=== PATIENT | female | born 1950 | race African-American/Black ===

== ENCOUNTER 2020-03-09 18:24 | Emergency (ER) | payer OTHER ==
[~2020-03-09] VITALS: Ht 165.1 cm; Wt 85.7 kg
[2020-03-09 19:55] VITALS: BP 138/88
[2020-03-09] MEDS ORDERED: ASPirin 81 mg TAB PO ONE (20:15)
[2020-03-09 22:02] LABS: Basophils # (auto) 0.1 10 ^3/uL (0-0.2); Hemoglobin 11.5 g/dL (12.2-16.2); Lymphocytes # (auto) 1.7 10 ^3/uL (0.4-5.4); Monocytes # (auto) 0.5 10 ^3/uL (0-1.3); Neutrophils # (auto) 3.7 10 ^3/uL (1.6-8.6); White Blood Cell 6.3 10^3/uL (4.4-10.8)
[2020-03-09 22:03] LABS: Basophils % (auto) 1.3 % (0.0-2.0); Eosinophils # (auto) 0.3 10 ^3/uL (0-0.8); Eosinophils % (auto) 4.2 % (0.0-7.0); Hematocrit 34.4 % (36.0-46.0); Lymphocytes % (auto) 27.2 % (10.0-50.0); Mean Corpuscular Hemoglobin 27.3 pg (28.0-32.0); Mean Corpuscular Hgb Conc. 33.4 g/dL (32.0-36.0); Mean Corpuscular Volume 81.7 fL (80.0-100.0); Monocytes % (auto) 7.9 % (0.0-12.0); Neutrophils % (auto) 59.4 % (37.0-80.0); Nucleated Red Blood Cells % 0.1 %; Platelet Count (auto) 317 10^3/uL (140-450); Red Blood Cells 4.22 10^6/uL (4.0-5.20); Red Cell Distribution Width 14.7 % (11.8-14.3)
[2020-03-09 22:21] LABS: INR 1.04 (0.9-1.15); Partial Thromboplastin Time 26.5 sec (23.0-31.2)
[2020-03-09 22:22] LABS: Alanine Aminotransferase 23 U/L (13-56); Albumin 3.9 g/dL (3.4-5.0); Anion Gap 9 (5-15); Aspartate Aminotransferase 18 U/L (15-37); BUN/Creatinine Ratio 16.9; Blood Urea Nitrogen 26 mg/dL (7-18); Calcium 9.5 mg/dL (8.5-10.1); Carbon Dioxide 25 mmol/L (21-32); Chloride 107 mmol/L (98-107); GFR African American 43 mL/min; GFR Non-African American 36 mL/min; Glucose 137 mg/dL (74-106); Magnesium 2.2 mg/dL (1.6-2.6); Sodium 141 mmol/L (136-145)
[2020-03-09 22:27] LABS: Alkaline Phosphatase 122 U/L (45-117); Bilirubin, Total 0.3 mg/dL (0.2-1.0); Total Protein 8.3 g/dL (6.4-8.2)
== END 2020-03-09 21:48 | disposition left against medical advice (07) ==
LOC: ER 18:24 → EDBD 18:24 → ER 21:48
DX: R07.89 Other chest pain (principal); E11.9 Type 2 diabetes mellitus without complications; I10 Essential (primary) hypertension; E78.5 Hyperlipidemia, unspecified; I25.10 Atherosclerotic heart disease of native coronary artery without angina pectoris
CPT/HCPCS: 36415; 71045; 80053; 83735; 83880; 84443; 84484; 85025; 85610; 85730; 93005

== ENCOUNTER 2024-08-13 15:19 | Inpatient (IN) | payer OTHER, MEDICAID ==
[~2024-08-13] VITALS: Ht 165.1 cm; Wt 85.3 kg
--- NOTE | 2024-08-13 15:34 | ED.PDOC ---
History of Present Illness HPI Comments 74-year-old female presents with a chief complaint of SOB and weakness x 2 weeks. Patient states that she mainly has SOB at rest when lying down and has been feeling increasingly weak. Patient denies any chest pain at this time. Patients EKG showed A-Fib with LBBB at rate of 126. Patient denies any other sym ptoms at this time. Chief Complaint: Shortness of Breath Time Seen by MD: 15:28 Primary Care Provider: Chuyita Lizmaa Reviewed Notes: Nurses Notes, Medications, Allergies Allergies: Coded Allergies: NO KNOWN ALLERGIES (Unverified , 03/09/20) Information Source: Patient Mode of Arrival: Ambulatory Severity: Moderate Timing: Weeks Duration: Intermittent Prehospital treatment: None Past Medical History PAST MEDICAL HISTORY: AFIB, CAD, CKF, DM, Gout, High Lipids, HTN, [place] Surgical History: Denies all surgeries Family History Family History: Family hx of DM, Family hx of heart cinda, Family hx of HTN Social History Smoker: Non-Smoker Alcohol: Rarely Drugs: Denies Drug Use Lives In: Home Constitutional: reports: weakness; denies: chills, diaphoresis, fatigue, fever, malaise, sweats, others EENTM: denies: blurred vision, double vision, ear bleeding, ear discharge, ear drainage, ear pain, ear ringing, eye pain, eye redness, hearing loss, mouth pain, mouth swelling, nasal discharge, nose bleeding, nose congestion, nose pain, photophobia, tearing, throat pain, throat swelling, voice changes, others Respiratory: reports: SOB at rest, shortness of breath; denies: cough, hemoptysis, orthopnea, SOB with excertion, stridor, wheezing, others Cardiovascular: denies: chest pain, dizzy spells, diaphoresis, Dyspnea on exe rtion, edema, irregular heart beat, left arm pain, lightheadedness, palpitations, PND, syncope, others Gastrointestinal: denies: abdomen distended, abdominal pain, blood streaked bowels, constipated, diarrhea, dysphagia, difficulty swallowing, hematemesis, melena, nausea, poor appetite, poor fluid intake, rectal bleeding, rectal pain, vomiting, others Genitourinary: denies: abnormal vagina bleeding, burning, dyspareunia, dysuria, flank pain, frequency, hematuria, incontinence, pain, , vagina discharge, urgency, others Neurological: denies: dizziness, fainting, headache, left sided numbness, left sided weakness, numbness, paresthesia, pre-existing deficit, right sided numbness, right sided weakness, seizure, speech problems, tingling, tremors, weakness, others Musculoskeletal: denies: back pain, gout, joint pain, joint swelling, muscle pain, muscle stiffness, neck pain, others Integumetry: denies: bruises, change in color, change in hair/nails, dryness, laceration, lesions, lumps, rash, wounds, others Allergic/Immunocompromised: denies: Difficulty Healing, Frequent Infections, Hives, Itching, others Hematologic/Lymphatic: denies: anemia, blood clots, easy bleeding, easy bruising, swollen glands, others Endocrine: denies: excessive hunger, excessive sweating, excessive thirst, excessive urination, flushing, intolerance to cold, intolerance to heat, unexplained weight gain, unexplained weight loss, others Psychiatric: denies: anxiety, bipolar disorder, depression, hopeless, panic disorder, schizophrenia, sleepless, suicidal, others All Other Systems: Reviewed and Negative Physical Exam General Appearance: Moderate Distress HEENT: Normal ENT Inspection, Pharynx Normal, TMs Normal Neck: Full Range of Motion, Non-Tender, Normal, Normal Inspection Respiratory: Chest Non-Tender, Lungs Clear, No Accessory Muscle Use, No Respi ratory Distress, Normal Breath Sounds Cardiovascular: Irregular, No Edema, No JVD, No Murmur, No Gallop, Tachycardia Breast Exam: Deferred Gastrointestinal: No Organomegaly, Non Tender, No Pulsatile Mass, Normal Bowel Sounds, Soft Genitalia: Deferred Pelvic: Deferred Rectal: Deferred Extremities: No calf tenderness, Normal capillary refill, No pedal edema Musculoskeletal : Apperance: Normal Neurologic: Alert, manager cardiac II-XII nml as Tested, Motor Weakness, Normal Affect, Normal Mood, No Sensory Deficits Cerebellar Function: Normal Reflexes: Normal Skin: Dry, Normal Color, Warm Lymphatic: No Adenopathy Was a procedure done? Was a procedure done?: No EKG EKG : Pulse Rate (adult): 126 [place]: Normal Cardiac Rhythm: Afib Block: LBBB Hypertrophy: None ST: Normal Differential Dx Considerations may include: Atrial fibrillation with rapid response, electrolyte imbalance dehydration, elec trolyte imbalance X-Ray, Labs, Meds, VS Vital Signs Date Time Temp Pulse Resp B/P (MAP) Pulse Ox O2 Delivery O2 Flow Rate FiO2 08/13/24 18:00 73 23 90/66 (74) 95 08/13/24 17:50 118 95/73 08/13/24 16:00 108 08/13/24 15:50 126 24 96 Room Air* 0 21 08/13/24 15:50 97.6 126 24 98/75 (83) 96 97.6 08/13/24 15:34 126 08/13/24 15:27 84.9 10 18 122/74 (90) 98 84.9 08/13/24 15:27 126 Lab Test 08/13/24 17:22 08/13/24 16:28 08/13/24 16:03 08/13/24 15:30 Range/Units Troponin I High Sensitivity 17 14 </=34 ng/L White Blood Count 5.3 4.4-10.8 10^3/uL Red Blood Count 3.96 L 4.0-5.20 10^6/uL Hemoglobin 12.0 L 12.2-16.2 g/dL Hematocrit 36.2 36.0-46.0 % Mean Corpuscular Volume 91.6 80.0-100.0 fL Mean Corpuscular Hemoglobin 30.3 28.0-32.0 pg Mean Corpuscular Hemoglobin Concent 33.1 32.0-36.0 g/dL Red Cell Distribution Width 17.2 H 11.8-14.3 % Platelet Count 225 140-450 10^3/uL Mean Platelet Volume 8.1 6.9-10.8 fL Neutrophils (%) (Auto) 61.5 37.0-80.0 % Lymphocytes (%) (Auto) 27.8 10.0-50.0 % Monocytes (%) (Auto) 7.2 0.0-12.0 % Eosinophils (%) (Auto) 2.3 0.0-7.0 % Basophils (%) (Auto) 1.2 0.0-2.0 % Neutrophils # (Auto) 3.3 1.6-8.6 10 ^3/uL Lymphocytes # (Auto) 1.5 0.4-5.4 10 ^3/uL Monocytes # (Auto) 0.4 0-1.3 10 ^3/uL Eosinophils # (Auto) 0.1 0-0.8 10 ^3/uL Basophils # (Auto) 0.1 0-0.2 10 ^3/uL Nucleated Red Blood Cells 0.1 % Sodium Level 143 136-145 mmol/L Potassium Level 4.2 3.5-5.1 mmol/L Chloride Level 110 H 98-107 mmol/L Carbon Dioxide Level 24 20-31 mmol/L Anion Gap 9 5-15 Blood Urea Nitrogen 35 H 9-23 mg/dL Creatinine 2.32 H 0.550-1.02 mg/dL Glomerular Filtration Rate Calc 22 >90 mL/min BUN/Creatinine Ratio 15.1 10.0-20.0 Serum Glucose 109 H 74-106 mg/dL Calcium Level 11.3 H 8.7-10.4 mg/dL Magnesium Level 2.3 1.6-2.6 mg/dL B-Type Natriuretic Peptide 434.10 0-100 pg/mL POC Glucose 116 H 70-106 mg/dl Urine Color Yellow Yellow Urine Clarity Turbid H Clear Urine pH 5.0 5.0-9.0 Urine Specific [place] 1.016 1.001-1.035 Urine Protein 1+ H Negative Urine Ketones Negative Negative Urine Blood Negative Negative /uL Urine Nitrite Negative Negative Urine Bilirubin Negative Negative Urine Urobilinogen Normal Negative mg/dL Urine Leukocyte Esterase 3+ Negative /uL Urine RBC 2 0 - 4 /hpf Urine Microscopic WBC 177 H 0-5 /HPF Urine Squamous Epithelial Cells Few <5 /hpf Urine Bacteria None seen None Seen /hpf Urine Hyaline Casts Many 0 - 2 /lpf Urine Mucus Few None Seen Urine Glucose Normal Normal mg/dL Test 08/13/24 15:27 Range/Units POC Glucose 115 H 70-106 mg/dl Current Medications Medications (Trade) Dose Ordered Sig/Tere Route Start Time Stop Time Status Last Admin Aspirin 162 mg ONCE ONCE PO 08/13/24 16:00 08/13/24 16:01 DC 08/13/24 15:56 Sodium Chloride 1,000 ml @ 1,000 mls/hr Q1H ONCE IV 08/13/24 18:00 08/13/24 18:59 08/13/24 17:59 Amiodarone HCl 100 ml @ 600 mls/hr ONCE ONCE IV 08/13/24 18:00 08/13/24 18:09 DC 08/13/24 17:55 The chest x-ray shows cardiomegaly but no sign of any infiltrates The patient was somewhat hypotensive as well as having an atrial fibrillation greater than 120. We started the patient on amiodarone 150 mg IV and then an amiodarone drip The patient was given aspirin 162 mg by mouth The patient was bolused with normal saline at 1000 The urine test is positive for UTI The patient is being given Rocephin 1 g IV piggyback The BNP is 434 The CBC and the rest of the chemistry panel shows a BUN of 35 and a creatinine of 2.32 The troponin level x2 is negative At this time, the patient is being admitted to the hospitalist We will continue the amiodarone drip. Images Reviewed?: Images reviewed and evaluated by me Time of 1ST Reevaluation: 15:58 Reevaluation 1ST: Unchanged Patient Education/Counseling: Diagnosis, Treatment, Prognosis Family Education/Counseling: No Family Present Departure 1 Departure Time of Disposition: 18:53 Impression: Primary Impression: Atrial fibrillation with rapid ventricular response Additional Impression: Generalized weakness Disposition: ADMITTED INPATIENT Admit to: ICU Condition: Fair Critical Care Note Critical Care Time?: Yes (55 min-critical care time only) Stability Stability form required: Yes Unstable for transfer: ICU, CCU, PCU, ROB (Intensive VS monitoring), ED Physician Assesment (Clinical assesment) Heart Score Heart Score: Heart Score Response (Comments) Value History N/A 0 EKG N/A 0 Age N/A 0 Risk Factors N/A 0 Troponin N/A 0 Total 0 I personally scribed for LAWRENCE DAVID MD ([email or web address]) on 08/13/24 at 15:34. Electronically submitted by Mikey Romo ([email or web address]). LAWRENCE DAVID MD August 13, 2024 15:34
[2024-08-13 15:50] VITALS: PULSE 126; RESP 24; O2SAT 96
[2024-08-13] MEDS: ASPirin 81 mg TAB PO ONE (15:56)
[2024-08-13 16:04] LABS: Urine Bacteria None Seen /hpf (None Seen)
--- NOTE | 2024-08-13 16:19 | DVH ---
CHEST RADIOGRAPH Indication: sob Technique: Single frontal view of the chest was obtained COMPARISON: CHEST PORTABLE on DOS: 03/09/20 FINDINGS: Lines and Tubes: None Lungs: Clear Pleura: No effusion. No pneumothorax. Cardiomediastinal contours: Cardiomegaly Bones: Unremarkable IMPRESSION: Cardiomegaly
[2024-08-13 16:20] LABS: Urine Blood Negative /uL (Negative); Urine Clarity Turbid (Clear); Urine Color Yellow (Yellow); Urine Hyaline Cast MANY /lpf (0 - 2); Urine Mucus FEW (None Seen); Urine Protein, UAD 1+ (Negative); Urine Specific Gravity 1.016 (1.001-1.035); Urine Squamous Epithelial Cell FEW /hpf (<5); Urine Urobilinogen Normal (Negative); Urine WBC 177 /HPF (0-5)
[2024-08-13 16:49] LABS: Basophils # (auto) 0.1 10 ^3/uL (0-0.2); Basophils % (auto) 1.2 % (0.0-2.0); Eosinophils # (auto) 0.1 10 ^3/uL (0-0.8); Eosinophils % (auto) 2.3 % (0.0-7.0); Hematocrit 36.2 % (36.0-46.0); Lymphocytes # (auto) 1.5 10 ^3/uL (0.4-5.4); Lymphocytes % (auto) 27.8 % (10.0-50.0); Mean Corpuscular Hemoglobin 30.3 pg (28.0-32.0); Mean Corpuscular Hgb Conc. 33.1 g/dL (32.0-36.0); Mean Corpuscular Volume 91.6 fL (80.0-100.0); Monocytes # (auto) 0.4 10 ^3/uL (0-1.3); Monocytes % (auto) 7.2 % (0.0-12.0); Neutrophils # (auto) 3.3 10 ^3/uL (1.6-8.6); Neutrophils % (auto) 61.5 % (37.0-80.0); Nucleated Red Blood Cells % 0.1 %; Platelet Count (auto) 225 10^3/uL (140-450); Red Blood Cells 3.96 10^6/uL (4.0-5.20); Red Cell Distribution Width 17.2 % (11.8-14.3); White Blood Cell 5.3 10^3/uL (4.4-10.8)
[2024-08-13 16:59] LABS: Potassium 4.2 mmol/L (3.5-5.1); Sodium 143 mmol/L (136-145)
[2024-08-13 17:00] LABS: Anion Gap 9 (5-15); Carbon Dioxide 24 mmol/L (20-31)
[2024-08-13 17:04] LABS: Calcium 11.3 mg/dL (8.7-10.4); Chloride 110 mmol/L (98-107)
[2024-08-13 17:06] LABS: BUN/Creatinine Ratio 15.1 (10.0-20.0); Blood Urea Nitrogen 35 mg/dL (9-23); Glucose 109 mg/dL (74-106); Magnesium 2.3 mg/dL (1.6-2.6)
[2024-08-13] MEDS: METOPROLOL TARTRATE 1MG/1ML-5ML VIAL IV ONE (17:50)
[2024-08-13] MEDS: AMIODARONE BOLUS KIT 100 ML IV ONE (17:55)
[2024-08-13] MEDS: SODIUM CHLORIDE 0.9% 1,000 ML IV ONE (17:59)
[2024-08-13] MEDS: AMIODARONE 360mg/200mL PREMIX 200 ML IV ONE (18:28)
[2024-08-13 19:48] VITALS: PULSE 88; RESP 14; O2SAT 95
[2024-08-13] MEDS ORDERED: HYDROcodone-ACET 5/325MG TAB PO PRN (22:00)
[2024-08-13] MEDS: ATORVASTATIN 20 MG TAB PO SCH (22:00)
[2024-08-13] MEDS ORDERED: DEXTROSE (50%) 50ML SYRG IV PRN (22:00)
[2024-08-13] MEDS: InsuLIN REG 1unit/0.01ml Soln (100units/ml) SC SCH (22:00)
[2024-08-13] MEDS ORDERED: hydrALAZINE HCL 20 MG/ML VL IV PRN (22:00)
[2024-08-13] MEDS: CARVEDILOL 3.125 MG TAB PO SCH (22:00)
[2024-08-13] MEDS ORDERED: DOCUSATE SOD 100 MG CAP PO PRN (22:00)
[2024-08-13] MEDS ORDERED: ACETAMINOPHEN 325 MG TAB PO PRN (22:00)
[2024-08-13] MEDS: FUROSEMIDE 20 MG/2 ML VIAL IV ONE (22:00)
[2024-08-13] MEDS ORDERED: NITROGLYCERIN 0.4 MG SL TAB SL PRN (22:00)
[2024-08-13] MEDS: cefTRIAXone 1GM/50ML D5W 50 ML IV ONE (22:00)
[2024-08-13] MEDS ORDERED: ONDANSETRON HCL 4 MG/2 ML VIAL IV PRN (22:00)
[2024-08-13] MEDS ORDERED: MORPHINE SULFATE INJ 2 MG/ml SYRG IV PRN (22:00)
[2024-08-13] MEDS: ACCU-CHEK COMFORT CURVE STRIP VI SCH (22:00)
[2024-08-13] MEDS: SODIUM CHLOR 0.9% PF (SALINE LOCK) 10ML VIAL/SYR IV SCH (22:00)
--- NOTE | 2024-08-13 22:07 | DVHHP2 ---
History of Present Illness Reason for Visit: Generalized weakness History of Present Illness The patient is a 74 old female with multiple past medical history including AFib, Coronary artery disease, DM, and hypertension who presented to [facility] ED with complaint of generalized weakness for the past 2 weeks. Patient reports symptoms progressively get worse with shortness of breaths, increased weakness, getting worse that prompted this visit. Patient was seen and evaluated in the ED, laboratory data shows WBC 5.3, platelets 225, sodium 143, potassium 4.2, BUN 35, creatinine 2.32, glucose 109, BNP 434.10, troponin 14, blood pressure 120/85, heart rate 126 trending down to 88, temperature 98.9 F, O2 saturation 95% on room air. Urinalysis positive for urinary tract infection. Patient was started on IV antibiotic regimen Rocephin, please see medication orders section in the computer. On my assessment, patient denied chest pain, no headache, no dizziness, no diaphoresis, no shortness of breath, no nausea, no vomiting, no fever, no chills. Patient was admitted for further evaluation and medical management. Past Medical History AFIB, CAD, CKF, DM, Gout, High Lipids, HTN, [place] Past Surgical History Denies all surgeries Family History Reviewed, noncontributory to the management of this case. Past Social History The patient lives at home, denies smoking, alcohol or illicit drugs abuse. Review of Systems Constitutional: Yes: Weakness; No: Fever, Chills, Sweats, Malaise, Other Eyes: No: Pain, Vision change, Conjunctivae inflammation, Eyelid inflammation, Other, Redness ENT: No: Ear pain, Ear discharge, Nose pain, Nose discharge, Nose congestion, Mouth pain, Mouth swelling, Throat pain, Throat swelling, Other Respiratory: Shortness of breath, Other (SOB at rest); No: Cough, Dry, SOB with excertion, Wheezing, Hemoptysis, Pleuritic Pain, Sputum, Wheezing Cardiovascular: No: Chest Pain, Palpitations, Orthopnea, Paroxysmal Noc. Dyspnea, Edema, Lt Headedness, Other Gastrointestinal: No: Nausea, Vomiting, Abdominal Pain, Diarrhea, Constipation, Melena, Hematochezia, Other Genitourinary: No Dysuria, No Frequency, No Incontinence, No Hematuria, No Retention, No Other Musculoskeletal: No: other, neck pain, shoulder pain, arm pain, back pain, hand pain, leg pain, foot pain Skin: No: Rash, Lesions, Jaundice, Bruising, Other Neurological: No: Weakness, Numbness, Incoordination, Change in speech, Confusion, Seizures, Other Allergies: Coded Allergies: NO KNOWN ALLERGIES (Unverified , 03/09/20) Exam Vital Signs Vital Signs Date Time Temp Pulse Resp B/P (MAP) Pulse Ox O2 Delivery O2 Flow Rate FiO2 08/13/24 22:00 98.9 77 25 119/74 (89) 95 98.9 08/13/24 19:48 Room Air* 0 21 General Appearance: Alert, Oriented X3, Cooperative, No acute distress HEENT: Atraumatic, PERRLA, EOMI, Mucous membr. moist/pink Respiratory: Normal air movement Cardiovascular: Regular rate, Normal S1, Normal S2, No murmurs Abdominal: Normal bowel sounds, Soft, No tenderness, No hepatospenomegaly, No masses Extremities: No clubbing, No cyanosis, No edema, Normal pulses, No tenderness/swelling Skin: No rashes, No breakdown, No significant lesion Neuro: Normal speech, Normal tone, Sensation intact, Cranial nerves 3-12 NL, Reflexes 2+, Other (Generalized weakness) Psych/Mental Status: Mental status NL, Mood NL Labs/Xrays Labs Test 08/13/24 19:15 08/13/24 16:28 08/13/24 16:03 08/13/24 15:30 Range/Units Troponin I High Sensitivity 16 </=34 ng/L White Blood Count 5.3 4.4-10.8 10^3/uL Red Blood Count 3.96 L 4.0-5.20 10^6/uL Hemoglobin 12.0 L 12.2-16.2 g/dL Hematocrit 36.2 36.0-46.0 % Mean Corpuscular Volume 91.6 80.0-100.0 fL Mean Corpuscular Hemoglobin 30.3 28.0-32.0 pg Mean Corpuscular Hemoglobin Concent 33.1 32.0-36.0 g/dL Red Cell Distribution Width 17.2 H 11.8-14.3 % Platelet Count 225 140-450 10^3/uL Mean Platelet Volume 8.1 6.9-10.8 fL Neutrophils (%) (Auto) 61.5 37.0-80.0 % Lymphocytes (%) (Auto) 27.8 10.0-50.0 % Monocytes (%) (Auto) 7.2 0.0-12.0 % Eosinophils (%) (Auto) 2.3 0.0-7.0 % Basophils (%) (Auto) 1.2 0.0-2.0 % Neutrophils # (Auto) 3.3 1.6-8.6 10 ^3/uL Lymphocytes # (Auto) 1.5 0.4-5.4 10 ^3/uL Monocytes # (Auto) 0.4 0-1.3 10 ^3/uL Eosinophils # (Auto) 0.1 0-0.8 10 ^3/uL Basophils # (Auto) 0.1 0-0.2 10 ^3/uL Nucleated Red Blood Cells 0.1 % Sodium Level 143 136-145 mmol/L Potassium Level 4.2 3.5-5.1 mmol/L Chloride Level 110 H 98-107 mmol/L Carbon Dioxide Level 24 20-31 mmol/L Anion Gap 9 5-15 Blood Urea Nitrogen 35 H 9-23 mg/dL Creatinine 2.32 H 0.550-1.02 mg/dL Glomerular Filtration Rate Calc 22 >90 mL/min BUN/Creatinine Ratio 15.1 10.0-20.0 Serum Glucose 109 H 74-106 mg/dL Calcium Level 11.3 H 8.7-10.4 mg/dL Magnesium Level 2.3 1.6-2.6 mg/dL B-Type Natriuretic Peptide 434.10 0-100 pg/mL POC Glucose 116 H 70-106 mg/dl Urine Color Yellow Yellow Urine Clarity Turbid H Clear Urine pH 5.0 5.0-9.0 Urine Specific [place] 1.016 1.001-1.035 Urine Protein 1+ H Negative Urine Ketones Negative Negative Urine Blood Negative Negative /uL Urine Nitrite Negative Negative Urine Bilirubin Negative Negative Urine Urobilinogen Normal Negative mg/dL Urine Leukocyte Esterase 3+ Negative /uL Urine RBC 2 0 - 4 /hpf Urine Microscopic WBC 177 H 0-5 /HPF Urine Squamous Epithelial Cells Few <5 /hpf Urine Bacteria None seen None Seen /hpf Urine Hyaline Casts Many 0 - 2 /lpf Urine Mucus Few None Seen Urine Glucose Normal Normal mg/dL PATIENT: LEEANNA LANDERS ACCT: [id number] UNIT: [id number] : 1950 LOC: ER ROOM / BED: / AGE / SEX: 74 / F ADM STATUS: REG ER SERVICE [id number] ORDERING PHYSICIAN: LAWRENCE DAVID MD PROCEDURE(s): CXRP - CHEST PORTABLE REASON: sob ORDER NUMBER(s): [id number], ACCESSION NUMBER(s): [id number] CHEST RADIOGRAPH Indication: sob Technique: Single frontal view of the chest was obtained COMPARISON: CHEST PORTABLE on DOS: 03/09/20 FINDINGS: Lines and Tubes: None Lungs: Clear Pleura: No effusion. No pneumothorax. Cardiomediastinal contours: Cardiomegaly Bones: Unremarkable IMPRESSION: Cardiomegaly Assessment/Plan Assessment/Plan Atrial fibrillation with rapid ventricular response Generalized weakness Urinary tract infection Acute on chronic renal failure Acute exacerbation of congestive heart failure Plan 1. Admit to telemetry units 2. Breathing treatment 3. Pain control management 4. IV antibiotic management 5. Management of fluids and electrolytes 6. Consultation for hospitalist 7. Diagnostic test chest x-ray 8. DVT prophylaxis on aspirin 9. Repeat labs CBC, CMP in a.m. 10. Home medication reviewed and reconciled 11. Continue with current medical management 12. Treatment plan discussed with patient and RN. Patient verbalized understanding. Plan discussed with: Patient, Other (RN) My Orders Orders - MARCO HANEY DNP Procedure Category Date Status Time Urine Bacterial BOLA 08/13/24 Transmitted Culture 21:57 Carvedilol Tablet PHA 08/13/24 Transmitted (Coreg Tablet) 22:00 Hydralazine Injection PHA 08/13/24 Transmitted (Apresoline Inject 22:00 Furosemide Injection PHA 08/13/24 Transmitted (Lasix Injection) 22:00 Furosemide Injection PHA 08/14/24 Transmitted (Lasix Injection) 10:00 Atorvastatin (Lipitor) PHA 08/13/24 Transmitted 22:00 Consistent DIET 08/14/24 Transmitted Carb(Ccho)Diabetes Breakfast Amlodipine Tablet PHA 08/14/24 Transmitted (Norvasc Tablet) 10:00 (Nf) Xeralto PHA 08/14/24 Transmitted 10:00 Ceftriaxone Ivpb PHA 08/14/24 Transmitted Rocephin 09:00 Ceftriaxone Ivpb PHA 08/13/24 Transmitted Rocephin 22:00 Glucose Blood PHA 08/13/24 Transmitted (Accu-Chek Comfort 22:00 Mild Sliding Scale PHA 08/13/24 Transmitted 22:00 Dextrose 50% Syringe PHA 08/13/24 Transmitted 22:00 Admit ADMIT 08/13/24 Transmitted 21:57 Allergies ANTOINETTE 08/13/24 Transmitted 21:57 Code Status CODE 08/13/24 Transmitted 21:57 Sodium Chloride Lock PHA 08/13/24 Transmitted (Saline Lock Ns) 22:00 Oxygen Per Hour RT 08/13/24 Transmitted 21:57 Hydrocodone-Acet PHA 08/13/24 Transmitted 5/325mg Tab ([place] 22:00 Ondansetron Hcl PHA 08/13/24 Transmitted (Zofran) 22:00 Docusate Sodium PHA 08/13/24 Transmitted Capsule (Colace 22:00 Complete Blood Count LAB 08/14/24 Verified 04:00 Comprehensive LAB 08/14/24 Verified Metabolic Panel 04:00 Echo 2d Mode Cardiac US 08/13/24 Transmitted DOP 21:57 Condition: Serious ANTOINETTE 08/13/24 Transmitted 21:57 Acetaminophen Tablet PHA 08/13/24 Transmitted (Tylenol Tablet) 22:00 Bedrest With Bathroom ANTOINETTE 08/13/24 Transmitted Privileg 21:57 Sequential [facility] 08/13/24 Transmitted Compression Device Nitroglycerin [facility] 08/13/24 Transmitted Sublingual (Ntrostat 22:00 Morphine Sulfate PHA 08/13/24 Transmitted Injection 22:00 Stat Ekg For Chest [facility] 08/13/24 Transmitted Pain 21:57 Notify Of Changes [facility] 08/13/24 Transmitted From Base 21:57 Search Director For [facility] 08/13/24 Transmitted 24 Hours 21:57 Emergency Dysrhythmia [facility] 08/13/24 Transmitted Protocol 21:57 Rhythm Strips Once [facility] 08/13/24 Transmitted Every Shift 21:57 Oxygen By Nasal RT 08/13/24 Transmitted Cannula 21:57 Problem List: (1) Atrial fibrillation with rapid ventricular response (2) Acute on chronic renal failure (3) Generalized weakness (4) Urinary tract infection (5) Acute exacerbation of congestive heart failure Date of Service: August 13, 2024 Billing Provider: MARCO HANEY DNP Common Visit Codes: 72903-[id number] INP/OBS CARE (HIGH) MARCO HANEY DNP August 13, 2024 22:07
[2024-08-14] VITALS (8 sets, daily range): BP systolic 101–140; BP diastolic 60–89; PULSE 91–136; RESP 17–20; TEMP 95.5–97.8; O2SAT 92–97
[2024-08-14] MEDS ORDERED: ESCI1TAB36 PO (02:37)
[2024-08-14] MEDS ORDERED: AMLO1TAB23 PO (02:37)
[2024-08-14] MEDS ORDERED: GLIP-110 PO (02:37)
[2024-08-14] MEDS ORDERED: MET25T PO (02:37)
[2024-08-14] MEDS ORDERED: RIV15T PO (02:37)
[2024-08-14] MEDS ORDERED: LISI40TA16 PO (02:37)
[2024-08-14] MEDS ORDERED: ATOR40TA52 PO (02:37)
[2024-08-14] MEDS ORDERED: DULA4.5I SC (02:37)
[2024-08-14] MEDS ORDERED: ALLO300T2 PO (02:37)
[2024-08-14] MEDS ORDERED: HYDR12.55 PO (02:37)
[2024-08-14] MEDS ORDERED: ASPI81CH59 PO (02:38)
[2024-08-14 08:19] LABS: Basophils # (auto) 0 10 ^3/uL (0-0.2); Basophils % (auto) 1.1 % (0.0-2.0); Eosinophils # (auto) 0.1 10 ^3/uL (0-0.8); Eosinophils % (auto) 2.9 % (0.0-7.0); Hematocrit 33.1 % (36.0-46.0); Lymphocytes # (auto) 1.4 10 ^3/uL (0.4-5.4); Lymphocytes % (auto) 30.3 % (10.0-50.0); Mean Corpuscular Hemoglobin 30.4 pg (28.0-32.0); Mean Corpuscular Hgb Conc. 33.3 g/dL (32.0-36.0); Mean Corpuscular Volume 91.2 fL (80.0-100.0); Monocytes # (auto) 0.4 10 ^3/uL (0-1.3); Monocytes % (auto) 7.7 % (0.0-12.0); Neutrophils # (auto) 2.7 10 ^3/uL (1.6-8.6); Nucleated Red Blood Cells % 0.1 %; Platelet Count (auto) 186 10^3/uL (140-450); Red Blood Cells 3.63 10^6/uL (4.0-5.20); Red Cell Distribution Width 16.7 % (11.8-14.3); White Blood Cell 4.7 10^3/uL (4.4-10.8)
[2024-08-14 08:44] LABS: Alanine Aminotransferase 16 U/L (7-40); Albumin 4.3 g/dL (3.2-4.8); Alkaline Phosphatase 56 U/L (46-116); Anion Gap 10 (5-15); Aspartate Aminotransferase 17 U/L (13-40); BUN/Creatinine Ratio 17.4 (10.0-20.0); Bilirubin, Total 0.6 mg/dL (0.2-1.0); Carbon Dioxide 22 mmol/L (20-31); Glucose 80 mg/dL (74-106); Potassium 3.6 mmol/L (3.5-5.1); Sodium 144 mmol/L (136-145); Total Protein 6.8 g/dL (5.7-8.2)
[2024-08-14 08:46] LABS: Blood Urea Nitrogen 34 mg/dL (9-23); Calcium 10.5 mg/dL (8.7-10.4); Chloride 112 mmol/L (98-107)
[2024-08-14] MEDS: cefTRIAXone 1GM/50ML D5W 50 ML IV SCH (08:49)
[2024-08-14] MEDS: FUROSEMIDE 20 MG/2 ML VIAL IV SCH (09:03)
[2024-08-14] MEDS: ASPirin 81 mg TAB PO SCH (09:05)
[2024-08-14] MEDS: amLODIPine BESYLATE 5 MG TAB PO SCH (09:06)
[2024-08-14] MEDS: RIVAROXABAN 15 MG TAB PO SCH ×2 (09:06→17:30)
--- NOTE | 2024-08-14 14:14 | DVHPN2 ---
Reviewed: Care Plan, H&P, Medications, Previous Orders, Radiology Changes from previous H/P or p: No Changes General: Per HPI Eyes: No Pain, No Vision change, No Conjunctivae inflammation, No Eyelid inflammation, No Other, No Redness ENT: No Ear pain, No Ear discharge, No Nose pain, No Nose discharge, No Nose congestion, No Mouth pain, No Mouth swelling, No Throat pain, No Throat swelling, No Other Cardiovascular: No Chest Pain, No Palpitations, No Orthopnea, No Paroxysmal Noc. Dyspnea, No Edema, No Lt Headedness, No Other Respiratory: No Cough, No Dry; Shortness of breath; No SOB with excertion, No Wheezing, No Hemoptysis, No Pleuritic Pain, No Sputum; Other (SOB at rest) Gastrointestinal: No Nausea, No Vomiting, No Abdominal Pain, No Diarrhea, No Constipation, No Melena, No Hematochezia, No Other Genitourinary: No Dysuria, No Frequency, No Incontinence, No Hematuria, No Retention, No Other Musculoskeletal: No other, No neck pain, No shoulder pain, No arm pain, No back pain, No hand pain, No leg pain, No foot pain Skin: No Rash, No Lesions, No Jaundice, No Bruising, No Other Objective Vitals Vital Signs Date Time Temp Pulse Resp B/P (MAP) Pulse Ox O2 Delivery O2 Flow Rate FiO2 08/14/24 13:00 97.8 117 17 106/85 (92) 97 97.8 08/14/24 08:00 Room Air* 0 21 Intake/Output Intake and Output 08/14/24 07:00 Intake Total 949.98 ml Balance 949.98 ml Intake Oral 100 ml IV Total 849.98 ml # Voids 2 General Appearance: Alert, Oriented X3, Cooperative Cardiovascular: Regular rate, Normal S1, Normal S2 Medications Current Medications Medications Dose Ordered Sig/Tere Route Start Time Stop Time Status Last Admin Dose Admin Carvedilol 3.125 mg Q12HR PO 08/13/24 22:00 08/14/24 09:06 3.125 MG Hydralazine HCl 10 mg Q6HP PRN IV 08/13/24 22:00 Furosemide 20 mg DAILY IV 08/14/24 10:00 08/14/24 09:03 20 MG Atorvastatin Calcium 20 mg HS PO 08/13/24 22:00 08/13/24 22:00 20 MG Amlodipine Besylate 5 mg DAILY PO 08/14/24 10:00 08/14/24 09:06 5 MG Rivaroxaban 15 mg DAILY PO 08/14/24 10:00 08/14/24 09:06 15 MG Ceftriaxone Sodium 50 ml @ 100 mls/hr DAILY@09 IV 08/14/24 09:00 08/14/24 08:49 100 MLS/HR Diagnostic Test (Pha) 1 strip ACHS 08/13/24 22:00 08/14/24 11:45 1 STRIP Insulin Human Regular ACHS SC 08/13/24 22:00 Dextrose 50 ml UD PRN IV 08/13/24 22:00 Sodium Chloride 10 ml Q8HR IV 08/13/24 22:00 08/14/24 06:20 10 ML Acetaminophen/ Hydrocodone Bitart 1 tab Q4HP PRN PO 08/13/24 22:00 Ondansetron HCl 4 mg Q4HP PRN IV 08/13/24 22:00 Docusate Sodium 100 mg BIDPRN PRN PO 08/13/24 22:00 Acetaminophen 650 mg Q6HP PRN PO 08/13/24 22:00 Nitroglycerin 0.4 mg Q5MINP PRN SL 08/13/24 22:00 Morphine Sulfate 2 mg Q30M PRN IV 08/13/24 22:00 Aspirin 81 mg DAILY PO 08/14/24 10:00 08/14/24 09:05 81 MG Laboratory Results Laboratory Tests 08/14/24 07:37 Chemistry Test 08/13/24 16:28 08/14/24 07:37 Calcium Level 11.3 mg/dL (8.7-10.4) H 10.5 mg/dL (8.7-10.4) H Magnesium Level 2.3 mg/dL (1.6-2.6) Albumin 4.3 g/dL (3.2-4.8) Total Protein 6.8 g/dL (5.7-8.2) Cardiac Markers Test 08/13/24 16:28 B-Type Natriuretic Peptide 434.10 pg/mL (0-100) LFT Test 08/14/24 07:37 Alanine Aminotransferase (ALT) 16 U/L (7-40) Alkaline Phosphatase 56 U/L (46-116) Aspartate Amino Transferase (AST) 17 U/L (13-40) Total Bilirubin 0.6 mg/dL (0.2-1.0) Urinalysis Test 08/13/24 15:30 Urine Color Yellow (Yellow) Urine Clarity Turbid (Clear) H Urine pH 5.0 (5.0-9.0) Urine Specific [place] 1.016 (1.001-1.035) Urine Protein 1+ (Negative) H Urine Ketones Negative (Negative) Urine Blood Negative /uL (Negative) Urine Nitrite Negative (Negative) Urine Bilirubin Negative (Negative) Urine Urobilinogen Normal mg/dL (Negative) Urine Leukocyte Esterase 3+ /uL (Negative) Urine RBC 2 /hpf (0 - 4) Urine Microscopic WBC 177 /HPF (0-5) H Urine Squamous Epithelial Cells Few /hpf (<5) Urine Bacteria None seen /hpf (None Seen) Urine Hyaline Casts Many /lpf (0 - 2) Urine Mucus Few (None Seen) Urine Glucose Normal mg/dL (Normal) Microbiology Microbiology Date/Time Source Procedure Growth Status 08/13/24 15:30 Voided Urine Urine Culture - Preliminary Resulted Labs and/or images reviewed: Labs reviewed by me, Image(s) reviewed by me Assessment/Plan Assessment/Plan The patient is a 74 old female with multiple past medical history including AFib, Coronary artery disease, DM, and hypertension who presented to [facility] ED with complaint of generalized weakness for the past 2 weeks. Patient reports symptoms progressively get worse with shortness of breaths, increased weakness, getting worse that prompted this visit. Patient was seen and evaluated in the ED, laboratory data shows WBC 5.3, platelets 225, sodium 143, potassium 4.2, BUN 35, creatinine 2.32, glucose 109, BNP 434.10, troponin 14, blood pressure 120/85, heart rate 126 trending down to 88, temperature 98.9 F, O2 saturation 95% on room air. Urinalysis positive for urinary tract infection. Patient was started on IV antibiotic regimen Rocephin, please see medication orders section in the computer. On my assessment, patient denied chest pain, no headache, no dizziness, no diaphoresis, no shortness of breath, no nausea, no vomiting, no fever, no chills. Patient was admitted for further evaluation and medical management. (1) Atrial fibrillation with rapid ventricular response (2) Acute on chronic renal failure (3) Generalized weakness (4) Urinary tract infection (5) Acute exacerbation of congestive heart failure dyspnea obesity consult to cardio restarted on home meds echo as needed PT/OT Plan discussed with: Patient Date of Service: August 14, 2024 Billing Provider: BREE HUDDLESTON DO Common Visit Codes: [id number] INP/OBS CARE(HIGH) BREE HUDDLESTON DO August 14, 2024 14:13
[2024-08-14] MEDS ORDERED: MORPHINE SULFATE 4 MG/ML SYR/VIAL IV PRN (15:15)
--- NOTE | 2024-08-14 18:15 | DVHSR ---
APPROVED REPORT EXAM: Two-dimensional and M-mode echocardiogram with Doppler and color Doppler. Blood Pressure: 101/60 mmHg INDICATION CHF EXACERBATION RISK FACTORS Obesity: Height: 5'5, Weight: 194 DIMENSIONS LVDd4.9 (3.8-5.7cm)LA (2D)4.5 (1.9-4.0cm)Aortic Root3.2 (2.0-3.7cm) LVDs3.6 (2.5-4.0cm)LA (MM) (1.9-4.0cm)Aortic Cusp Exc1.5 (1.5-2.0cm) EF (%) 45.0 (55-70%)Rt. Atrium3.1 (1.9-4.0cm)Asc. Aorta4.0 cm IVSd1.1 (0.7-1.1cm)RV (D)3.4 (1.8-2.4cm) PWd0.9 (0.7-1.1cm) Mitral Valve MitralMitral Stenosis E wave0.65m/sMV Mean GR.1mmHg A wave0.01m/sMV Peak GR.78mmHg E/A ratio65.02D MVAcm2 DECEL [id number] 1/2 Timems Aortic Valve Aortic ValveAortic Stenosis V11.10m/Malia Mean GR.3mmHg V21.21m/Malia Peak GR.6mmHg LVOT Diameter2.4 (1.8-2.4cm)Doppler AVA4.11cm2 AI P 1/2 Vwaz889.21ms Pulmonic Valve V21.12m/s Conclusion lvef 25% by visual estiamate sever chf normal rv function left atrium enlarged miild mitral regurg limited study
--- NOTE | 2024-08-14 20:30 | ECG ---
[facility] Test Date: 2024-08-13 Test Time: 15:27:40 Pat Name: LEEANNA LANDERS Department: ER Room: 0248T B Gender: F Pediatric Sports Medicine Specialist: MAGI : [id number] Requested By: LAWRENCE DAVID Order Number: [id number] Reading MD: Harvey Shields Measurements Intervals [place] Rate: 126 P: 0 OH: 0 QRS: -75 QRSD: 155 T: 100 QT: 399 QTc: 578 Interpretive Statements Atrial fibrillation Left bundle branch block Baseline wander in lead(s) II,V1,V2 Electronically Signed On 08-16-2024 22:12:36 PDT by Harvey Shields Please click the below link to view image of tracing.
[2024-08-14] MEDS: AMIODARONE HCL 200 MG TAB PO SCH (21:03)
[2024-08-14] MEDS: METOPROLOL TARTRATE 25 MG TAB PO SCH (21:05)
[2024-08-15] VITALS (10 sets, daily range): BP systolic 109–118; BP diastolic 77–91; PULSE 67–135; RESP 17–18; TEMP 96.6–98.3; O2SAT 96–97
[2024-08-15] MEDS: AMIODARONE HCL 200 MG TAB PO SCH (09:21)
--- NOTE | 2024-08-15 12:39 | DVHINCON2 ---
NEIDA ORDONEZ [facility] 08/15/24 1239: Date Seen: August 15, 2024 Referring Physician MD Hermila Reason for Consultation Uncontrolled atrial fibrillation History of Present Illness This is a 74-year-old female patient who presents to the emergency room with chief complaint of generalized weakness and orthopnea for two weeks prior to emergency room arrival. Cardiology has now been consulted at this time for uncontrolled atrial fibrillation. Initial twelve lead electrocardiogram reveals atrial fibrillation with left bundle branch block. The patient denies any chest pain or palpitations at time of assessment. Serial troponin levels have been negative. Initial BNP level of 434.10pg/mL. Significant past medical history includes congestive heart failure, atrial fibrillation (on Xarelto), hyp ertension, dyslipidemia, myocardial infarction, type 2 diabetes mellitus, chronic kidney disease, and remote history of cocaine use over 15 years ago. The patient reports that her primary heat curer is . She reports undergoing a coronary angiogram with left heart catheterization a few years ago in which no catheter based intervention was deemed necessary. She reports an upcoming appointment with on August 31, 2024. Past Medical History Past medical history reviewed. No other significant than mentioned above. Past Surgical History Denies any previous surgeries Family History: Cervical cancer G8 MOTHER Family History Family history reviewed. Social History Patient admits to a remote history of cocaine use, last time approximately 15 years ago Denies any alcohol use Denies any tobacco use Allergies: Coded Allergies: NO KNOWN ALLERGIES (Unverified , 03/09/20) Home Meds Reported Medications Aspirin (Aspirin Low Dose) 81 Mg Chw, 81 MG PO DAILY, TAB.CHEW 08/14/24 Amlodipine Besylate (Amlodipine Besylate) 10 Mg Tab, 1 TAB PO DAILY 08/14/24 Escitalopram Oxalate (ESCITALOPRAM OXALATE) 10 Mg Tab, 1 TAB PO DAILY 08/14/24 Dulaglutide (Trulicity) 4.5 Mg/0.5 Ml Inj, 0.5 ML SC QWEEKLY 08/14/24 Hydrochlorothiazide (Hydrochlorothiazide) 12.5 Mg Tab, 1 TAB PO DAILY 08/14/24 Allopurinol (Allopurinol) 300 Mg Tab, 1 TAB PO DAILY 08/14/24 Lisinopril (Lisinopril) 40 Mg Tab, 1 TAB PO DAILY 08/14/24 Glipizide (Glipizide Er) 5 Mg Tab, 1 TAB PO DAILY 08/14/24 Rivaroxaban (Xarelto Tablet) 15 Mg Tb, 1 TAB PO DAILY 08/14/24 Metoprolol Tartrate (Lopressor) 25 Mg Tb, 1 TAB PO BID 08/14/24 Atorvastatin Calcium (ATORVASTATIN CALCIUM) 40 Mg Tab, 1 TAB PO HS 08/14/24 Current Medications Current Medications Medications (Trade) Dose Ordered Sig/Tere Route PRN Reason Start Time Stop Time Status Last Admin Metoprolol Tartrate (Lopressor Tablet) 25 mg BID PO 08/14/24 22:00 08/15/24 09:22 Morphine Sulfate 2 mg Q30M PRN IV FOR CHEST PAIN 08/14/24 15:15 Rivaroxaban (Xarelto Tablet) 15 mg DAILY@DINNER PO 08/14/24 17:30 Amiodarone HCl (Cordarone Tablet) 200 mg Q12HR PO 08/14/24 22:00 08/14/24 23:16 DC 08/14/24 21:03 Amiodarone HCl (Cordarone Tablet) 200 mg DAILY PO 08/15/24 10:00 08/15/24 09:21 Empaglifozin (Jardiance) 10 mg DAILY PO 08/16/24 10:00 Review of Systems Constitutional: Generalized weakness Ears, Nose, & Throat: No symptom reported Eyes: No symptom reported Neurological: No symptoms reported Pulmonary/Respiratory: No symptoms reported Cardiovascular: No symptom reported Gastrointestinal: No symptom reported Genitourinary: No symptom reported Musculoskeletal: No symptom reported Skin: No symptom reported Psychiatric: No symptom reported Endocrine: No symptom reported Hematologic/Lymphatic: No symptom reported Vital Signs Vital Signs Date Time Temp Pulse Resp B/P (MAP) Pulse Ox O2 Delivery O2 Flow Rate FiO2 08/15/24 12:32 97.5 88 17 118/83 (95) 97 97.5 08/15/24 08:10 Room Air* 0 21 Physical Exam General Appearance: Cooperative. Well-developed. Well-nourished. No acute distress. Pulmonary/Respiratory: Clear, bilateral breaths sounds. Cardiovascular/Chest: Irregular rate and rhythm. Peripheral Pulses: 2+ Radial (R). 2+ Radial (L). 2+ Pedal (R). 2+ Pedal (L) Abdominal Exam: Normal bowel sounds. Ankle Exam: Negative ankle edema Lower extremities: Negative lower extremity edema Neuro/Mental Status: A/OX4, coherent. Thoughts/Psych: Normal thought pattern. Appropriate mood and affect. Good judgment and insight. Appearance: No acute distress. Skin Exam: Normal inspection. Normal color. Warm and dry. Labs/Diagnostic Data Labs Test 08/15/24 11:21 08/14/24 07:37 08/13/24 19:15 08/13/24 16:28 Range/Units POC Glucose 152 H 70-106 mg/dl White Blood Count 4.7 4.4-10.8 10^3/uL Red Blood Count 3.63 L 4.0-5.20 10^6/uL Hemoglobin 11.0 L 12.2-16.2 g/dL Hematocrit 33.1 L 36.0-46.0 % Mean Corpuscular Volume 91.2 80.0-100.0 fL Mean Corpuscular Hemoglobin 30.4 28.0-32.0 pg Mean Corpuscular Hemoglobin Concent 33.3 32.0-36.0 g/dL Red Cell Distribution Width 16.7 H 11.8-14.3 % Platelet Count 186 140-450 10^3/uL Mean Platelet Volume 8.1 6.9-10.8 fL Neutrophils (%) (Auto) 58.0 37.0-80.0 % Lymphocytes (%) (Auto) 30.3 10.0-50.0 % Monocytes (%) (Auto) 7.7 0.0-12.0 % Eosinophils (%) (Auto) 2.9 0.0-7.0 % Basophils (%) (Auto) 1.1 0.0-2.0 % Neutrophils # (Auto) 2.7 1.6-8.6 10 ^3/uL Lymphocytes # (Auto) 1.4 0.4-5.4 10 ^3/uL Monocytes # (Auto) 0.4 0-1.3 10 ^3/uL Eosinophils # (Auto) 0.1 0-0.8 10 ^3/uL Basophils # (Auto) 0 0-0.2 10 ^3/uL Nucleated Red Blood Cells 0.1 % Sodium Level 144 136-145 mmol/L Potassium Level 3.6 3.5-5.1 mmol/L Chloride Level 112 H 98-107 mmol/L Carbon Dioxide Level 22 20-31 mmol/L Anion Gap 10 5-15 Blood Urea Nitrogen 34 H 9-23 mg/dL Creatinine 1.95 H 0.550-1.02 mg/dL Glomerular Filtration Rate Calc 27 >90 mL/min BUN/Creatinine Ratio 17.4 10.0-20.0 Serum Glucose 80 74-106 mg/dL Calcium Level 10.5 H 8.7-10.4 mg/dL Total Bilirubin 0.6 0.2-1.0 mg/dL Aspartate Amino Transferase (AST) 17 13-40 U/L Alanine Aminotransferase (ALT) 16 7-40 U/L Alkaline Phosphatase 56 46-116 U/L Total Protein 6.8 5.7-8.2 g/dL Albumin 4.3 3.2-4.8 g/dL Troponin I High Sensitivity 16 </=34 ng/L Magnesium Level 2.3 1.6-2.6 mg/dL B-Type Natriuretic Peptide 434.10 0-100 pg/mL Test 08/13/24 15:30 Range/Units Urine Color Yellow Yellow Urine Clarity Turbid H Clear Urine pH 5.0 5.0-9.0 Urine Specific [place] 1.016 1.001-1.035 Urine Protein 1+ H Negative Urine Ketones Negative Negative Urine Blood Negative Negative /uL Urine Nitrite Negative Negative Urine Bilirubin Negative Negative Urine Urobilinogen Normal Negative mg/dL Urine Leukocyte Esterase 3+ Negative /uL Urine RBC 2 0 - 4 /hpf Urine Microscopic WBC 177 H 0-5 /HPF Urine Squamous Epithelial Cells Few <5 /hpf Urine Bacteria None seen None Seen /hpf Urine Hyaline Casts Many 0 - 2 /lpf Urine Mucus Few None Seen Urine Glucose Normal Normal mg/dL Microbiology Date/Time Source Procedure Growth Status 08/13/24 15:30 Voided Urine Urine Culture - Preliminary Resulted Assessment Atrial fibrillation, likely persistent (on Xarelto) Acute on chronic HFrEF, NYHA class III History myocardial infarction Hypertension Hyperlipidemia Type 2 diabetes mellitus Chronic kidney disease Urinary tract infection History of cocaine abuse Plan/Recommendation We will continue with the following plan/recommendations (Dr. You): * Transthoracic echocardiogram reveals EF 25% * Initiate guideline directed medical therapy for CHF * Unable to start LINWOOD/ARB/ARNI or MRA given elevated creatinine * Hold SGLT2i given active urinary tract infection and low GFR * Strict intake and output, daily weights, maintain fluid restriction * [id number] VASc score: 5 points, HAS BLED: 1 point * Continue Xarelto therapy * Up titrate beta-flakita as tolerated * Monitor and replete electrolytes as needed, keep potassium greater than 4 and magnesium greater than 2 * Lipid-lowering agent * Close Cardiac surveillance Case discussed with . Thank you for allowing us to care for this patient. Please call with any questions or concerns. Critical care time spent: 41 minutes This medical document was created using an electronic medical record system with voice recognition software and computerized dictation system. Although this document has been carefully reviewed, there might still be some phonetic and typographical errors. Occasional wrong-word or ``sound-alike substitutions may have occurred due to the inherent limitations of voice recognition software. These areas are purely typographical due to imperfections of the software programs and do not reflect any compromise in the patient's medical care. Please read the chart carefully and recognize, using context, where these substitutions have occurred. Plan discussed with: Patient NYHA Physical activity limitations: Class3(Marked) ordinary (activity causes symtoms) Date of Service: August 15, 2024 Billing Provider: NEIDA ORDONEZ Cardiology Common Codes: [id number] INP/OBS CARE (High) Cardiology Consultation Codes: [id number] CONSULT <45MIN ASHER YOU MD 08/17/24 0833: Family History: Cervical cancer G8 MOTHER Allergies: Coded Allergies: NO KNOWN ALLERGIES (Unverified , 03/09/20) Home Meds Reported Medications Aspirin (Aspirin Low Dose) 81 Mg Chw, 81 MG PO DAILY, TAB.CHEW 08/14/24 Amlodipine Besylate (Amlodipine Besylate) 10 Mg Tab, 1 TAB PO DAILY 08/14/24 Escitalopram Oxalate (ESCITALOPRAM OXALATE) 10 Mg Tab, 1 TAB PO DAILY 08/14/24 Dulaglutide (Trulicity) 4.5 Mg/0.5 Ml Inj, 0.5 ML SC QWEEKLY 08/14/24 Hydrochlorothiazide (Hydrochlorothiazide) 12.5 Mg Tab, 1 TAB PO DAILY 08/14/24 Allopurinol (Allopurinol) 300 Mg Tab, 1 TAB PO DAILY 08/14/24 Lisinopril (Lisinopril) 40 Mg Tab, 1 TAB PO DAILY 08/14/24 Glipizide (Glipizide Er) 5 Mg Tab, 1 TAB PO DAILY 08/14/24 Rivaroxaban (Xarelto Tablet) 15 Mg Tb, 1 TAB PO DAILY 08/14/24 Metoprolol Tartrate (Lopressor) 25 Mg Tb, 1 TAB PO BID 08/14/24 Atorvastatin Calcium (ATORVASTATIN CALCIUM) 40 Mg Tab, 1 TAB PO HS 08/14/24 Plan/Recommendation SEVERE CHF LOW EF AFIB CHRONIC GDMT AND DIURESIS NEIDA ORDONEZ August 15, 2024 12:39 ASHER YOU MD Aug 17, 2024 08:33
[2024-08-15 15:55] LABS: Magnesium 2.1 mg/dL (1.6-2.6)
[2024-08-16] VITALS (9 sets, daily range): BP systolic 108–129; BP diastolic 67–87; PULSE 70–113; RESP 14–18; TEMP 97.9–98.3; O2SAT 94–100
[2024-08-16] MEDS: METOPROLOL SUCCINATE XL 50 MG TAB PO SCH (08:55)
[2024-08-16] MEDS ORDERED: EMPAGLIFLOZIN 10 MG TAB PO SCH (10:00)
[2024-08-16 10:08] LABS: Basophils # (auto) 0.1 10 ^3/uL (0-0.2); Basophils % (auto) 1.3 % (0.0-2.0); Eosinophils # (auto) 0.1 10 ^3/uL (0-0.8); Eosinophils % (auto) 2.8 % (0.0-7.0); Hematocrit 34.6 % (36.0-46.0); Hemoglobin 11.7 g/dL (12.2-16.2); Lymphocytes % (auto) 22.1 % (10.0-50.0); Mean Corpuscular Hemoglobin 30.7 pg (28.0-32.0); Mean Corpuscular Hgb Conc. 33.9 g/dL (32.0-36.0); Mean Corpuscular Volume 90.6 fL (80.0-100.0); Monocytes # (auto) 0.3 10 ^3/uL (0-1.3); Monocytes % (auto) 7.1 % (0.0-12.0); Neutrophils % (auto) 66.7 % (37.0-80.0); Nucleated Red Blood Cells % 0.1 %; Platelet Count (auto) 194 10^3/uL (140-450); Red Blood Cells 3.81 10^6/uL (4.0-5.20); Red Cell Distribution Width 16.4 % (11.8-14.3); White Blood Cell 4.4 10^3/uL (4.4-10.8)
[2024-08-16 10:13] LABS: Chloride 107 mmol/L (98-107); Potassium 3.8 mmol/L (3.5-5.1); Sodium 139 mmol/L (136-145)
[2024-08-16 10:14] LABS: Anion Gap 9 (5-15); Carbon Dioxide 23 mmol/L (20-31)
[2024-08-16 10:19] LABS: Calcium 10.8 mg/dL (8.7-10.4)
[2024-08-16 10:20] LABS: BUN/Creatinine Ratio 18.1 (10.0-20.0); Blood Urea Nitrogen 31 mg/dL (9-23); Glucose 199 mg/dL (74-106)
--- NOTE | 2024-08-16 10:40 | DVHPN2 ---
Consult Progress Note Subjective Other Systems: Patient in atrial fibrillation with uncontrolled rate on machine bunch maker. Denies any symptoms such as palpitations, chest pain, or shortness of breath. Objective vital signs Vital Sign Date Time Temp Pulse Resp B/P (MAP) Pulse Ox O2 Delivery O2 Flow Rate FiO2 08/16/24 09:00 98.1 83 14 126/87 (100) 96 98.1 08/16/24 08:05 Room Air* 0 21 Total Intake and Output 08/15/24 08/15/24 08/16/24 15:00 23:00 07:00 Intake Total 50 ml 800 ml 600 ml Output Total 500 ml Balance 50 ml 800 ml 100 ml medications Current Medications Medications Dose Ordered Sig/Tere Route Start Time Stop Time Status Last Admin Dose Admin Hydralazine HCl 10 mg Q6HP PRN IV 08/13/24 22:00 Furosemide 20 mg DAILY IV 08/14/24 10:00 08/16/24 08:56 20 MG Atorvastatin Calcium 20 mg HS PO 08/13/24 22:00 08/15/24 21:07 20 MG Ceftriaxone Sodium 50 ml @ 100 mls/hr DAILY@09 IV 08/14/24 09:00 08/16/24 08:53 100 MLS/HR Diagnostic Test (Pha) 1 strip ACHS 08/13/24 22:00 08/16/24 06:05 1 STRIP Insulin Human Regular ACHS SC 08/13/24 22:00 08/15/24 21:08 2 UNITS Dextrose 50 ml UD PRN IV 08/13/24 22:00 Sodium Chloride 10 ml Q8HR IV 08/13/24 22:00 08/16/24 05:59 10 ML Acetaminophen/ Hydrocodone Bitart 1 tab Q4HP PRN PO 08/13/24 22:00 Ondansetron HCl 4 mg Q4HP PRN IV 08/13/24 22:00 Docusate Sodium 100 mg BIDPRN PRN PO 08/13/24 22:00 Acetaminophen 650 mg Q6HP PRN PO 08/13/24 22:00 Nitroglycerin 0.4 mg Q5MINP PRN SL 08/13/24 22:00 Morphine Sulfate 2 mg Q30M PRN IV 08/13/24 22:00 Cancel Aspirin 81 mg DAILY PO 08/14/24 10:00 08/16/24 08:55 81 MG Morphine Sulfate 2 mg Q30M PRN IV 08/14/24 15:15 Rivaroxaban 15 mg DAILY@DINNER PO 08/14/24 17:30 08/15/24 17:08 15 MG Metoprolol Succinate 50 mg DAILY PO 08/16/24 10:00 08/16/24 08:55 50 MG Examination: GENERAL:Normal, LUNGS:Normal, CVS:Abnormal (Atrial fibrillation with uncontrolled rate), NEURO:Normal laboratory and microbiology Laboratory Tests 08/16/24 09:47 Test 08/16/24 09:47 Range/Units Serum Glucose 199 H 74-106 mg/dL Problem List/Assessment/Plan Problem List/Assessment/Plan Atrial fibrillation, likely persistent (on Xarelto) Acute on chronic HFrEF, NYHA class III History myocardial infarction Hypertension Hyperlipidemia Type 2 diabetes mellitus Chronic kidney disease Urinary tract infection History of cocaine abuse over 15 years ago Plan/Recommendation (Dr. Heath): * Transthoracic echocardiogram reveals EF 25% * Continue guideline directed medical therapy for CHF * Unable to start LINWOOD/ARB/ARNI or MRA given elevated creatinine * Hold SGLT2i given active urinary tract infection and low GFR * Strict intake and output, daily weights, maintain fluid restriction * [id number] VASc score: 5 points, HAS BLED: 1 point * Continue Xarelto therapy * Up-titrate beta-flakita as tolerated * Monitor and replete electrolytes as needed, keep potassium greater than 4 and magnesium greater than 2 * Lipid-lowering agent * Close Cardiac surveillance Thank you for allowing us to care for this patient. Please call with any questions or concerns. This medical document was created using an electronic medical record system with voice recognition software and computerized dictation system. Although this document has been carefully reviewed, there might still be some phonetic and typographical errors. Occasional wrong-word or ``sound-alike substitutions may have occurred due to the inherent limitations of voice recognition software. These areas are purely typographical due to imperfections of the software programs and do not reflect any compromise in the patient's medical care. Please read the chart carefully and recognize, using context, where these substitutions have occurred. Plan discussed with: Patient Date of Service: Aug 16, 2024 Billing Provider: NEIDA ORDONEZ Common Visit Codes: [id number] INP/OBS CARE(HIGH) NEIDA ORDONEZ Aug 16, 2024 10:40
[2024-08-16] MEDS: DIGOXIN (250MCG/ML) 2 ML AMPULE IV ONE (11:24)
--- NOTE | 2024-08-16 21:08 | DVHPN2 ---
Reviewed: Care Plan, H&P, Labs, Medications, Previous Orders, Radiology Changes from previous H/P or p: No Changes General: Per HPI Eyes: No Pain, No Vision change, No Conjunctivae inflammation, No Eyelid inflammation, No Other, No Redness ENT: No Ear pain, No Ear discharge, No Nose pain, No Nose discharge, No Nose congestion, No Mouth pain, No Mouth swelling, No Throat pain, No Throat swelling, No Other Cardiovascular: No Chest Pain, No Palpitations, No Orthopnea, No Paroxysmal Noc. Dyspnea, No Edema, No Lt Headedness, No Other Respiratory: Shortness of breath, Other Gastrointestinal: No Nausea, No Vomiting, No Abdominal Pain, No Diarrhea, No Constipation, No Melena, No Hematochezia, No Other Genitourinary: No Dysuria, No Frequency, No Incontinence, No Hematuria, No Retention, No Other Musculoskeletal: No other, No neck pain, No shoulder pain, No arm pain, No back pain, No hand pain, No leg pain, No foot pain Skin: No Rash, No Lesions, No Jaundice, No Bruising, No Other Objective Vitals Vital Signs Date Time Temp Pulse Resp B/P (MAP) Pulse Ox O2 Delivery O2 Flow Rate FiO2 08/16/24 20:10 Room Air* 0 21 08/16/24 17:00 98.3 106 14 123/67 (85) 100 98.3 Intake/Output Intake and Output 08/16/24 06:59 Intake Total 1450 ml Output Total 500 ml Balance 950 ml Intake Oral 1400 ml IV Total 50 ml Output Urine Total 500 ml # Voids 4 # Bowel Movements 4 General Appearance: Alert, Oriented X3, Cooperative Cardiovascular: Regular rate, Normal S1, Normal S2 Abdomen: Normal bowel sounds Medications Current Medications Medications Dose Ordered Sig/Tere Route Start Time Stop Time Status Last Admin Dose Admin Hydralazine HCl 10 mg Q6HP PRN IV 08/13/24 22:00 Furosemide 20 mg DAILY IV 08/14/24 10:00 08/16/24 08:56 20 MG Atorvastatin Calcium 20 mg HS PO 08/13/24 22:00 08/15/24 21:07 20 MG Ceftriaxone Sodium 50 ml @ 100 mls/hr DAILY@09 IV 08/14/24 09:00 08/16/24 08:53 100 MLS/HR Diagnostic Test (Pha) 1 strip ACHS 08/13/24 22:00 08/16/24 17:01 1 STRIP Insulin Human Regular ACHS SC 08/13/24 22:00 08/16/24 11:34 3 UNITS Dextrose 50 ml UD PRN IV 08/13/24 22:00 Sodium Chloride 10 ml Q8HR IV 08/13/24 22:00 08/16/24 14:31 10 ML Acetaminophen/ Hydrocodone Bitart 1 tab Q4HP PRN PO 08/13/24 22:00 Ondansetron HCl 4 mg Q4HP PRN IV 08/13/24 22:00 Docusate Sodium 100 mg BIDPRN PRN PO 08/13/24 22:00 Acetaminophen 650 mg Q6HP PRN PO 08/13/24 22:00 Nitroglycerin 0.4 mg Q5MINP PRN SL 08/13/24 22:00 Morphine Sulfate 2 mg Q30M PRN IV 08/13/24 22:00 Cancel Aspirin 81 mg DAILY PO 08/14/24 10:00 08/16/24 08:55 81 MG Morphine Sulfate 2 mg Q30M PRN IV 08/14/24 15:15 Rivaroxaban 15 mg DAILY@DINNER PO 08/14/24 17:30 08/16/24 17:00 15 MG Metoprolol Succinate 50 mg DAILY PO 08/16/24 10:00 08/16/24 08:55 50 MG Laboratory Results Laboratory Tests 08/16/24 09:47 Chemistry Test 08/16/24 09:47 Calcium Level 10.8 mg/dL (8.7-10.4) H Urinalysis Test 08/13/24 15:30 Urine Color Yellow (Yellow) Urine Clarity Turbid (Clear) H Urine pH 5.0 (5.0-9.0) Urine Specific [place] 1.016 (1.001-1.035) Urine Protein 1+ (Negative) H Urine Ketones Negative (Negative) Urine Blood Negative /uL (Negative) Urine Nitrite Negative (Negative) Urine Bilirubin Negative (Negative) Urine Urobilinogen Normal mg/dL (Negative) Urine Leukocyte Esterase 3+ /uL (Negative) Urine RBC 2 /hpf (0 - 4) Urine Microscopic WBC 177 /HPF (0-5) H Urine Squamous Epithelial Cells Few /hpf (<5) Urine Bacteria None seen /hpf (None Seen) Urine Hyaline Casts Many /lpf (0 - 2) Urine Mucus Few (None Seen) Urine Glucose Normal mg/dL (Normal) Microbiology Microbiology Date/Time Source Procedure Growth Status 08/13/24 15:30 Voided Urine Urine Culture - Preliminary Resulted Labs and/or images reviewed: Labs reviewed by me, Image(s) reviewed by me Assessment/Plan Assessment/Plan The patient is a 74 old female with multiple past medical history including AFib, Coronary artery disease, DM, and hypertension who presented to [facility] ED with complaint of generalized weakness for the past 2 weeks. Patient reports symptoms progressively get worse with shortness of breaths, increased weakness, getting worse that prompted this visit. Patient was seen and evaluated in the ED, laboratory data shows WBC 5.3, platelets 225, sodium 143, potassium 4.2, BUN 35, creatinine 2.32, glucose 109, BNP 434.10, troponin 14, blood pressure 120/85, heart rate 126 trending down to 88, temperature 98.9 F, O2 saturation 95% on room air. Urinalysis positive for urinary tract infection. Patient was started on IV antibiotic regimen Rocephin, please see medication orders section in the computer. On my assessment, patient denied chest pain, no headache, no dizziness, no diaphoresis, no shortness of breath, no nausea, no vomiting, no fever, no chills. Patient was admitted for further evaluation and medical management. (1) Atrial fibrillation with rapid ventricular response (2) Acute on chronic renal failure (3) Generalized weakness (4) Urinary tract infection (5) Acute exacerbation of congestive heart failure dyspnea obesity 08/14/2024 consult to cardio restarted on home meds echo as needed PT/OT 08/15/2024 started on amiodarone discussed with pt nephro on board Plan discussed with: Patient My Orders Orders - BREE HUDDLESTON DO Procedure Category Date Status Time *Dr. Abimbola Michel CONS 08/16/24 Transmitted 10:43 Date of Service: August 15, 2024 Billing Provider: BREE HUDDLESTON DO Common Visit Codes: [id number] INP/OBS CARE(HIGH) BREE HUDDLESTON DO Aug 16, 2024 21:08
--- NOTE | 2024-08-16 21:13 | DVHPN2 ---
Reviewed: Care Plan, H&P, Labs, Medications, Previous Orders, Radiology Changes from previous H/P or p: No Changes General: Per HPI Eyes: No Pain, No Vision change, No Conjunctivae inflammation, No Eyelid inflammation, No Other, No Redness ENT: No Ear pain, No Ear discharge, No Nose pain, No Nose discharge, No Nose congestion, No Mouth pain, No Mouth swelling, No Throat pain, No Throat swelling, No Other Cardiovascular: No Chest Pain, No Palpitations, No Orthopnea, No Paroxysmal Noc. Dyspnea, No Edema, No Lt Headedness, No Other Respiratory: Shortness of breath, Other Gastrointestinal: No Nausea, No Vomiting, No Abdominal Pain, No Diarrhea, No Constipation, No Melena, No Hematochezia, No Other Genitourinary: No Dysuria, No Frequency, No Incontinence, No Hematuria, No Retention, No Other Musculoskeletal: No other, No neck pain, No shoulder pain, No arm pain, No back pain, No hand pain, No leg pain, No foot pain Skin: No Rash, No Lesions, No Jaundice, No Bruising, No Other Objective Vitals Vital Signs Date Time Temp Pulse Resp B/P (MAP) Pulse Ox O2 Delivery O2 Flow Rate FiO2 08/16/24 20:10 Room Air* 0 21 08/16/24 17:00 98.3 106 14 123/67 (85) 100 98.3 Intake/Output Intake and Output 08/16/24 06:59 Intake Total 1450 ml Output Total 500 ml Balance 950 ml Intake Oral 1400 ml IV Total 50 ml Output Urine Total 500 ml # Voids 4 # Bowel Movements 4 General Appearance: Alert, Oriented X3, Cooperative Cardiovascular: Regular rate, Normal S1, Normal S2 Abdomen: Normal bowel sounds Medications Current Medications Medications Dose Ordered Sig/Tere Route Start Time Stop Time Status Last Admin Dose Admin Hydralazine HCl 10 mg Q6HP PRN IV 08/13/24 22:00 Furosemide 20 mg DAILY IV 08/14/24 10:00 08/16/24 08:56 20 MG Atorvastatin Calcium 20 mg HS PO 08/13/24 22:00 08/15/24 21:07 20 MG Ceftriaxone Sodium 50 ml @ 100 mls/hr DAILY@09 IV 08/14/24 09:00 08/16/24 08:53 100 MLS/HR Diagnostic Test (Pha) 1 strip ACHS 08/13/24 22:00 08/16/24 17:01 1 STRIP Insulin Human Regular ACHS SC 08/13/24 22:00 08/16/24 11:34 3 UNITS Dextrose 50 ml UD PRN IV 08/13/24 22:00 Sodium Chloride 10 ml Q8HR IV 08/13/24 22:00 08/16/24 14:31 10 ML Acetaminophen/ Hydrocodone Bitart 1 tab Q4HP PRN PO 08/13/24 22:00 Ondansetron HCl 4 mg Q4HP PRN IV 08/13/24 22:00 Docusate Sodium 100 mg BIDPRN PRN PO 08/13/24 22:00 Acetaminophen 650 mg Q6HP PRN PO 08/13/24 22:00 Nitroglycerin 0.4 mg Q5MINP PRN SL 08/13/24 22:00 Morphine Sulfate 2 mg Q30M PRN IV 08/13/24 22:00 Cancel Aspirin 81 mg DAILY PO 08/14/24 10:00 08/16/24 08:55 81 MG Morphine Sulfate 2 mg Q30M PRN IV 08/14/24 15:15 Rivaroxaban 15 mg DAILY@DINNER PO 08/14/24 17:30 08/16/24 17:00 15 MG Metoprolol Succinate 50 mg DAILY PO 08/16/24 10:00 08/16/24 08:55 50 MG Laboratory Results Laboratory Tests 08/16/24 09:47 Chemistry Test 08/16/24 09:47 Calcium Level 10.8 mg/dL (8.7-10.4) H Urinalysis Test 08/13/24 15:30 Urine Color Yellow (Yellow) Urine Clarity Turbid (Clear) H Urine pH 5.0 (5.0-9.0) Urine Specific [place] 1.016 (1.001-1.035) Urine Protein 1+ (Negative) H Urine Ketones Negative (Negative) Urine Blood Negative /uL (Negative) Urine Nitrite Negative (Negative) Urine Bilirubin Negative (Negative) Urine Urobilinogen Normal mg/dL (Negative) Urine Leukocyte Esterase 3+ /uL (Negative) Urine RBC 2 /hpf (0 - 4) Urine Microscopic WBC 177 /HPF (0-5) H Urine Squamous Epithelial Cells Few /hpf (<5) Urine Bacteria None seen /hpf (None Seen) Urine Hyaline Casts Many /lpf (0 - 2) Urine Mucus Few (None Seen) Urine Glucose Normal mg/dL (Normal) Microbiology Microbiology Date/Time Source Procedure Growth Status 08/13/24 15:30 Voided Urine Urine Culture - Preliminary Resulted Labs and/or images reviewed: Labs reviewed by me, Image(s) reviewed by me Assessment/Plan Assessment/Plan The patient is a 74 old female with multiple past medical history including AFib, Coronary artery disease, DM, and hypertension who presented to [facility] ED with complaint of generalized weakness for the past 2 weeks. Patient reports symptoms progressively get worse with shortness of breaths, increased weakness, getting worse that prompted this visit. Patient was seen and evaluated in the ED, laboratory data shows WBC 5.3, platelets 225, sodium 143, potassium 4.2, BUN 35, creatinine 2.32, glucose 109, BNP 434.10, troponin 14, blood pressure 120/85, heart rate 126 trending down to 88, temperature 98.9 F, O2 saturation 95% on room air. Urinalysis positive for urinary tract infection. Patient was started on IV antibiotic regimen Rocephin, please see medication orders section in the computer. On my assessment, patient denied chest pain, no headache, no dizziness, no diaphoresis, no shortness of breath, no nausea, no vomiting, no fever, no chills. Patient was admitted for further evaluation and medical management. (1) Atrial fibrillation with rapid ventricular response (2) Acute on chronic renal failure (3) Generalized weakness (4) Urinary tract infection (5) Acute exacerbation of congestive heart failure dyspnea obesity 08/14/2024 consult to cardio restarted on home meds echo as needed PT/OT 08/15/2024 started on amiodarone discussed with pt nephro on board 08/16/2024 still has uncontrolled HR switched to digoxin continue to monitor discussed with pt regarding staying for another 1-2 days until her HR is improved, pt agreed Plan discussed with: Patient My Orders Orders - BREE HUDDLESTON DO Procedure Category Date Status Time *Dr. Abimbola Michel CONS 08/16/24 Transmitted 10:43 Date of Service: Aug 16, 2024 Billing Provider: BREE HUDDLESTON DO Common Visit Codes: [id number] INP/OBS CARE(HIGH) BREE HUDDLESTON DO Aug 16, 2024 21:13
[2024-08-17 05:00] VITALS: BP 116/83; PULSE 81; RESP 17; TEMP 97.7; O2SAT 98
[2024-08-17 08:05] VITALS: PULSE 84; RESP 16; O2SAT 100
[2024-08-17 09:00] VITALS: BP 117/89; PULSE 116; RESP 17; TEMP 97.9; O2SAT 99
[2024-08-17 09:45] VITALS: PULSE 132
[2024-08-17 13:00] VITALS: BP 117/77; PULSE 72; RESP 16; TEMP 97.3; O2SAT 97
[2024-08-17] MEDS ORDERED: METO-6 PO (13:03)
[2024-08-17] MEDS ORDERED: CEPH250C PO (13:03)
--- NOTE | 2024-08-17 13:06 | DVHDS2 ---
Discharge Summary Date of Admission August 13, 2024 at 21:57 Date of Discharge: Aug 17, 2024 Admitting Diagnosis Systolic CHF Exacerbation Labs/Diagnostic Data: Laboratory Results Test 08/17/24 10:59 08/16/24 09:47 08/15/24 15:15 08/14/24 07:37 POC Glucose 204 mg/dl (70-106) White Blood Count 4.4 10^3/uL (4.4-10.8) Red Blood Count 3.81 10^6/uL (4.0-5.20) Hemoglobin 11.7 g/dL (12.2-16.2) Hematocrit 34.6 % (36.0-46.0) Mean Corpuscular Volume 90.6 fL (80.0-100.0) Mean Corpuscular Hemoglobin 30.7 pg (28.0-32.0) Mean Corpuscular Hemoglobin Concent 33.9 g/dL (32.0-36.0) Red Cell Distribution Width 16.4 % (11.8-14.3) Platelet Count 194 10^3/uL (140-450) Mean Platelet Volume 8.3 fL (6.9-10.8) Neutrophils (%) (Auto) 66.7 % (37.0-80.0) Lymphocytes (%) (Auto) 22.1 % (10.0-50.0) Monocytes (%) (Auto) 7.1 % (0.0-12.0) Eosinophils (%) (Auto) 2.8 % (0.0-7.0) Basophils (%) (Auto) 1.3 % (0.0-2.0) Neutrophils # (Auto) 3.0 10 ^3/uL (1.6-8.6) Lymphocytes # (Auto) 1.0 10 ^3/uL (0.4-5.4) Monocytes # (Auto) 0.3 10 ^3/uL (0-1.3) Eosinophils # (Auto) 0.1 10 ^3/uL (0-0.8) Basophils # (Auto) 0.1 10 ^3/uL (0-0.2) Nucleated Red Blood Cells 0.1 % Sodium Level 139 mmol/L (136-145) Potassium Level 3.8 mmol/L (3.5-5.1) Chloride Level 107 mmol/L (98-107) Carbon Dioxide Level 23 mmol/L (20-31) Anion Gap 9 (5-15) Blood Urea Nitrogen 31 mg/dL (9-23) Creatinine 1.71 mg/dL (0.550-1.02) Glomerular Filtration Rate Calc 31 mL/min (>90) BUN/Creatinine Ratio 18.1 (10.0-20.0) Serum Glucose 199 mg/dL (74-106) Calcium Level 10.8 mg/dL (8.7-10.4) Magnesium Level 2.1 mg/dL (1.6-2.6) Triglycerides Level 155 mg/dL (< 150) Cholesterol Level 121 mg/dL (< 200) LDL Cholesterol 39 mg/dL (< 100) HDL Cholesterol 53 mg/dL (40-59) Thyroid Stimulating Hormone (TSH) 0.96 uIU/mL (0.55-4.78) Total Bilirubin 0.6 mg/dL (0.2-1.0) Aspartate Amino Transferase (AST) 17 U/L (13-40) Alanine Aminotransferase (ALT) 16 U/L (7-40) Alkaline Phosphatase 56 U/L (46-116) Total Protein 6.8 g/dL (5.7-8.2) Albumin 4.3 g/dL (3.2-4.8) Test 08/13/24 19:15 08/13/24 16:28 08/13/24 15:30 Troponin I High Sensitivity 16 ng/L (</=34) B-Type Natriuretic Peptide 434.10 pg/mL (0-100) Urine Color Yellow (Yellow) Urine Clarity Turbid (Clear) Urine pH 5.0 (5.0-9.0) Urine Specific [place] 1.016 (1.001-1.035) Urine Protein 1+ (Negative) Urine Ketones Negative (Negative) Urine Blood Negative /uL (Negative) Urine Nitrite Negative (Negative) Urine Bilirubin Negative (Negative) Urine Urobilinogen Normal mg/dL (Negative) Urine Leukocyte Esterase 3+ /uL (Negative) Urine RBC 2 /hpf (0 - 4) Urine Microscopic WBC 177 /HPF (0-5) Urine Squamous Epithelial Cells Few /hpf (<5) Urine Bacteria None seen /hpf (None Seen) Urine Hyaline Casts Many /lpf (0 - 2) Urine Mucus Few (None Seen) Urine Glucose Normal mg/dL (Normal) Other Laboratory Tests 6/1/25 09:47 Brief Hx & Hospital Course: This is a 74-year-old female patient who presents to the emergency room with chief complaint of generalized weakness and orthopnea for two weeks prior to emergency room arrival. Cardiology has now been consulted at this time for uncontrolled atrial fibrillation. Initial twelve lead electrocardiogram reveals atrial fibrillation with left bundle branch block. The patient denies any chest pain or palpitations at time of assessment. Serial troponin levels have been negative. Initial BNP level of 434.10pg/mL. Significant past medical history includes congestive heart failure, atrial fibrillation (on Xarelto), hypertension, dyslipidemia, myocardial infarction, type 2 diabetes mellitus, chronic kidney disease, and remote history of cocaine use over 15 years ago. 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 She reports undergoing a coronary angiogram with left heart catheterization a few years ago in which no catheter based intervention was deemed necessary. She reports an upcoming appointment with on August 31, 2024. Patient was changed Metoprolol dose to Tartrate. Patient also has a UTI, will discharge with Keflex. Explained plan of care to the patient and medications with possible side effects. 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 Lizama ( [facility]) in 1 week Medications: See [facility] Discharge Statement: "Patient was advised to return to the ER or call 911 if any headaches, dizziness, shortness of breath, chest pain, abdominal pain, bleeding, fevers, or worsening of medical condition. Patient was counseled about treatment plan, medications, possible side effects, patientverbalized understanding. All questions were answered to the best of my ability. This discharge took greater then 30 minutes in planning, reviewing documentation, counseling the patient, and discussing with other team members." ASSESSMENT ASSESSMENT Assessment Date of Service: Aug 17, 2024 Billing Provider: ROMAN BROWN MD Common Visit Codes: [id number] DISCH DAY >30min ROMAN BROWN MD Aug 17, 2024 13:06
--- NOTE | 2024-08-17 14:01 | DVHPN2 ---
Consult Progress Note Date Seen: Aug 17, 2024 Subjective Patient reports: Feels better Review of Systems: CVS:Normal, RESPIRATORY:Normal, NEURO:Normal Objective vital signs Vital Sign Date Time Temp Pulse Resp B/P (MAP) Pulse Ox O2 Delivery O2 Flow Rate FiO2 08/17/24 09:45 132 08/17/24 09:14 106/85 08/17/24 09:00 97.9 17 99 97.9 08/17/24 08:05 Room Air* 0 21 Total Intake and Output 08/16/24 08/16/24 08/17/24 15:00 23:00 07:00 Intake Total 50 ml 700 ml 700 ml Output Total 600 ml Balance 50 ml 100 ml 700 ml medications Current Medications Medications Dose Ordered Sig/Tere Route Start Time Stop Time Status Last Admin Dose Admin Hydralazine HCl 10 mg Q6HP PRN IV 08/13/24 22:00 Furosemide 20 mg DAILY IV 08/14/24 10:00 08/17/24 09:14 20 MG Atorvastatin Calcium 20 mg HS PO 08/13/24 22:00 08/16/24 21:09 20 MG Ceftriaxone Sodium 50 ml @ 100 mls/hr DAILY@09 IV 08/14/24 09:00 08/17/24 09:11 100 MLS/HR Diagnostic Test (Pha) 1 strip ACHS 08/13/24 22:00 08/17/24 11:45 1 STRIP Insulin Human Regular ACHS SC 08/13/24 22:00 08/17/24 11:47 4 UNITS Dextrose 50 ml UD PRN IV 08/13/24 22:00 Sodium Chloride 10 ml Q8HR IV 08/13/24 22:00 08/17/24 06:13 10 ML Acetaminophen/ Hydrocodone Bitart 1 tab Q4HP PRN PO 08/13/24 22:00 Ondansetron HCl 4 mg Q4HP PRN IV 08/13/24 22:00 Docusate Sodium 100 mg BIDPRN PRN PO 08/13/24 22:00 Acetaminophen 650 mg Q6HP PRN PO 08/13/24 22:00 Nitroglycerin 0.4 mg Q5MINP PRN SL 08/13/24 22:00 Morphine Sulfate 2 mg Q30M PRN IV 08/13/24 22:00 Cancel Aspirin 81 mg DAILY PO 08/14/24 10:00 08/17/24 09:15 81 MG Morphine Sulfate 2 mg Q30M PRN IV 08/14/24 15:15 Rivaroxaban 15 mg DAILY@DINNER PO 08/14/24 17:30 08/16/24 17:00 15 MG Metoprolol Succinate 50 mg DAILY PO 08/16/24 10:00 08/17/24 09:14 50 MG Examination: LUNGS:Normal, CVS:Normal, NEURO:Normal laboratory and microbiology Laboratory Tests 08/16/24 09:47 Test 08/16/24 09:47 Range/Units Serum Glucose 199 H 74-106 mg/dL Problem List/Assessment/Plan Problem List/Assessment/Plan Acute on chronic HFrEF, NYHA class III Atrial fibrillation, likely persistent (on Xarelto) 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 Heath) * Transthoracic echocardiogram reveals EF 25% * Guideline directed medical therapy for CHF including BB, up-titrate as tolerated * Unable to start LINWOOD/ARB/ARNI or MRA given elevated creatinine * Hold SGLT2i given active urinary tract infection and low GFR * DOAC therapy, continue Xarelto therapy * SEH0CG3 VASc score: 5 points, HAS BLED: 1 point * Rate control, BB as above * Monitor and replete electrolytes as needed, K> 4 and Mg>2 * Lipid-lowering agent Follow-up with Dr. Lizama as scheduled in the outpatient setting on 08/31/2024. There is no further cardiac work-up indicated. Kindly call if in need to re- consult. Thank you for allowing us to care for this patient. This medical document was created using an electronic medical record system with voice recognition software and computerized dictation system. Although this document has been carefully reviewed, there might still be some phonetic and typographical errors. Occasional wrong-word or ``sound-alike substitutions may have occurred due to the inherent limitations of voice recognition software. These areas are purely typographical due to imperfections of the software programs and do not reflect any compromise in the patient's medical care. Please read the chart carefully and recognize, using context, where these substitutions have occurred. Plan discussed with: Patient, Other Dietary Evaluation Review Recommendations by RD: Dietary education by RD Comments: 1) Encourage optimal PO intake 2) Collect HbA1C 3) Refer to outpatient RD/CDCES for weight management 4) Follow-up with cardiology and nephrology 5) Continue to monitor I&O, labs, and skin integrity Expected Outcomes/Goals: 1) appetite and labs to improve 2) f/u in 3-5 days Date of Service: Aug 17, 2024 Billing Provider: MABLE KAUR Cardiology Common Codes: [id number] INP/OBS CARE(Mod) MABLE KAUR Aug 17, 2024 14:01
[2024-08-17 15:07] VITALS: BP 117/77; PULSE 70; RESP 16; TEMP 97.3; O2SAT 97
== END 2024-08-17 16:40 | disposition home or self-care (01) | DRG 682 ==
LOC: ER 15:19 → OVERFLOW 21:57 → TELE-EAST 08-14 02:07
PROVIDERS: ADMIT Internal Medicine; ATTEND Internal Medicine
DX: N17.9 Acute kidney failure, unspecified (principal); I50.23 Acute on chronic systolic (congestive) heart failure; I13.0 Hypertensive heart and chronic kidney disease with heart failure and stage 1 through stage 4 chronic kidney disease, or unspecified chronic kidney disease; N30.00 Acute cystitis without hematuria; D68.69 Other thrombophilia; E11.22 Type 2 diabetes mellitus with diabetic chronic kidney disease; I25.10 Atherosclerotic heart disease of native coronary artery without angina pectoris; I48.91 Unspecified atrial fibrillation; N18.32 Chronic kidney disease, stage 3b; E78.5 Hyperlipidemia, unspecified; Z68.32 Body mass index [BMI] 32.0-32.9, adult; E66.01 Morbid (severe) obesity due to excess calories; I44.7 Left bundle-branch block, unspecified; I25.2 Old myocardial infarction; Z83.3 Family history of diabetes mellitus; Z82.49 Family history of ischemic heart disease and other diseases of the circulatory system; Z80.49 Family history of malignant neoplasm of other genital organs; Z79.01 Long term (current) use of anticoagulants; Z79.82 Long term (current) use of aspirin; Z79.899 Other long term (current) drug therapy; Z79.02 Long term (current) use of antithrombotics/antiplatelets
CPT/HCPCS: 36415; 71045; 80048; 80053; 80061; 81001; 82962; 83735; 83880; 84443; 84484; 85025; 87086; 93005; 93306; 96365; 96375; 99291; G0378; J1815